=== PATIENT | male | born 1995 | race Caucasian/White ===

== ENCOUNTER 2019-05-02 11:12 | Emergency (ER) | payer OTHER ==
[~2019-05-02] VITALS: Ht 188 cm; Wt 133.1 kg
[2019-05-02 11:12] VITALS: BP 146/88
--- NOTE | 2019-05-02 12:16 | REP ---
RIGHT FINGERS, FOUR VIEWS: HISTORY: Third digit injury. There is no acute fracture or dislocation. The joint spaces are normal in appearance. IMPRESSION: There is no acute fracture or dislocation. Electronically Signed by Mack Davila MD 05/02/2019 12:19 P
[2019-05-02] MEDS ORDERED: ADACEL/BOOSTRIX VACCINE (DIPHTH/PERTUSS/ACELL/TETANUS)0.5ML SYR (90715) IM ONE (12:45)
== END 2019-05-02 13:09 | disposition home or self-care (01) ==
LOC: M ED 11:12
DX: S60.942A Unspecified superficial injury of right middle finger, initial encounter (principal); W23.0XXA Caught, crushed, jammed, or pinched between moving objects, initial encounter; Y92.89 Other specified places as the place of occurrence of the external cause; Y93.89 Activity, other specified; Y99.0 Civilian activity done for income or pay; Z88.0 Allergy status to penicillin

== ENCOUNTER 2022-03-17 13:54 | Emergency (ER) | payer OTHER ==
[~2022-03-17] VITALS: Ht 188 cm; Wt 128.6 kg
[2022-03-17] MEDS ORDERED: DERMABOND TOPICAL SKIN ADHESIVE TOP ONE (18:30)
[2022-03-17] MEDS ORDERED: CEPH500C PO (19:35)
[2022-03-17] MEDS ORDERED: CEPHALEXIN 500 MG CAP PO ONE (20:10)
[2022-03-17 20:14] VITALS: BP 123/65
== END 2022-03-17 20:15 | disposition home or self-care (01) ==
LOC: M ED 13:54
DX: S61.317A Laceration without foreign body of left little finger with damage to nail, initial encounter (principal); S60.152A Contusion of left little finger with damage to nail, initial encounter; W23.1XXA Caught, crushed, jammed, or pinched between stationary objects, initial encounter; Y92.9 Unspecified place or not applicable; Y93.9 Activity, unspecified; Y99.0 Civilian activity done for income or pay